=== PATIENT | male | born 1975 | race Hispanic/Latino ===

== ENCOUNTER 2018-01-02 13:47 | Emergency (ER) | payer OTHER ==
[~2018-01-02] VITALS: Ht 165.1 cm; Wt 86.2 kg
[2018-01-02] MEDS ORDERED: CYCLOBENZAPRINE10 MG PO (17:03)
[2018-01-02] MEDS ORDERED: NAPROSYN500 MG PO (17:03)
--- NOTE | 2018-01-03 17:49 | EKG ---
[facility] [address] [facility] [place], [place] [address] Signed Sinus bradycardia Otherwise normal ECG Confirmed by ELIEZER BEAVER MD ([id number]) on 01/03/2018 5:48:56 PM Electronically Signed By: ELIEZER BEAVER MD 01/03/18 1749 PATIENT NAME: RACHEL CAALRADHA Electrocardiogram DATE OF : 77 PHYSICIAN: ELIEZER BEAVER MD REPORT #: [id number] REPORT IS CONFIDENTIAL AND NOT TO BE RELEASED WITHOUT AUTHORIZATION
== END 2018-01-02 17:15 | disposition home or self-care (01) ==
LOC: ED 13:47
DX: S43.491A Other sprain of right shoulder joint, initial encounter (principal); F17.200 Nicotine dependence, unspecified, uncomplicated; X58.XXXA Exposure to other specified factors, initial encounter; Y93.89 Activity, other specified; Y92.009 Unspecified place in unspecified non-institutional (private) residence as the place of occurrence of the external cause
CPT/HCPCS: 71045; 80053; 84484; 85025; 85379; 93005; 93010; 96374; 99284; J1885

== ENCOUNTER 2021-11-16 15:06 | Emergency (ER) | payer BC ==
[~2021-11-16] VITALS: Ht 165.1 cm; Wt 96.2 kg
[~2021-11-16 15:06] MED LIST: CYCLOBENZAPRINE10 MG PO; NAPROSYN500 MG PO
[2021-11-16] MEDS ORDERED: CEPHALEXIN500 M1 PO (18:38)
== END 2021-11-16 19:50 | disposition home or self-care (01) ==
LOC: ED 15:06
DX: S61.217A Laceration without foreign body of left little finger without damage to nail, initial encounter (principal); Z23 Encounter for immunization; W29.8XXA Contact with other powered hand tools and household machinery, initial encounter; F17.200 Nicotine dependence, unspecified, uncomplicated
CPT/HCPCS: 73140; 90471; 90715; 99283-25